=== PATIENT | female | born 1965 | race African-American/Black ===

== ENCOUNTER 2018-05-29 21:10 | Emergency (ER) | payer BC, OTHER ==
[~2018-05-29] VITALS: Ht 165.1 cm; Wt 75.0 kg
[2018-05-30 00:27] LABS: CHLORIDE 108 mEq/L (98-107)
[2018-05-30 00:36] LABS: BASOPHILS % 0.3 % (0.0-2.0); EOSINOPHILS % 2.6 % (0.0-5.0); HEMATOCRIT. 40.4 % (36.0-48.0); HEMOGLOBIN. 13.5 g/dL (12.0-16.0); LYMPHOCYTES % 33.3 % (20.0-50.0); MEAN CORPUSCULAR HEMOGLOBIN 27.6 pg (28.0-32.0); MEAN CORPUSCULAR VOLUME 82.6 fL (81.0-99.0); MONOCYTES % 5.3 % (2.0-8.0); NEUTROPHILS % 58.5 % (40.0-76.0); PLATELET 181 x1000/uL (130-400); RED BLOOD CELL COUNT 4.89 mill/uL (4.2-5.4); RED CELL DISTRIBUTION WIDTH 15.3 % (11.6-14.6)
[2018-05-30 02:28] VITALS: BP 115/52
== END 2018-05-30 02:40 | disposition home or self-care (01) ==
LOC: ER 21:10
DX: R07.89 Other chest pain (principal); Z88.2 Allergy status to sulfonamides
CPT/HCPCS: 36415; 71045; 84484; 93005; 99284

== ENCOUNTER 2018-06-23 12:25 | Emergency (ER) | payer BC ==
[~2018-06-23] VITALS: Ht 165.1 cm; Wt 75.0 kg
[2018-06-23 14:28] VITALS: BP 132/82
== END 2018-06-23 14:29 | disposition home or self-care (01) ==
LOC: ER 12:25
DX: J06.9 Acute upper respiratory infection, unspecified (principal); Z88.2 Allergy status to sulfonamides
CPT/HCPCS: 99283